=== PATIENT | female | born 1980 | race Hispanic/Latino ===

== ENCOUNTER 2017-03-12 17:13 | Emergency (ER) | payer OTHER ==
[2017-03-12 17:20] VITALS: RESP 16; TEMP 98.7
[2017-03-12] MEDS ORDERED: Sodium Chloride 0.9% 1,000 ML IV STA (17:38)
--- NOTE | 2017-03-12 17:39 | ED PDOC ---
"HPI: Abdomen Time Seen by Provider: 03/12/17 17:25 Chief Complaint (Nursing): Abdominal Pain Chief Complaint (Provider): Abdominal Pain History Per: Patient History/Exam Limitations: no limitations Onset/Duration Of Symptoms: Mins (prior to arrival) Current Symptoms Are (Timing): Better Additional Complaint(s): Jesus Barragan is a 37 year old female who presents to the emergency department, accompanied by her , with a complaint of bilateral lower abdominal pain associated with loss of consciousness of 1-2 seconds due to pain prior to arrival. Denied any fever, chills, nausea, vomiting, diarrhea, vaginal bleeding or discharge. Patient stated she has a baseline of low resting heart rate and abdominal pain has subsided since arriving to ED. DISTRICT ASSOCIATE JUDGE: Abigail Beverly MD PCP: [facility] Past Medical History Reviewed: Historical Data, Nursing Documentation, Vital Signs Vital Signs: Last Vital Signs Temp 98.7 F 03/12/17 17:16 Pulse 52 L 03/12/17 17:32 Resp 16 03/12/17 17:32 BP 106/61 03/12/17 17:32 Pulse Ox 97 03/12/17 21:18 - Medical History PMH: No Chronic Diseases - Surgical History Surgical History: No Surg Hx - Family History Family History: States: Unknown Family Hx - Home Medications Home Medications: Ambulatory Orders Medication Instructions Recorded Naproxen [Naprosyn] 500 mg PO BID PRN #15 tablet 03/12/17 - Allergies Allergies/Adverse Reactions: Allergies Allergy/AdvReac Type Severity Reaction Status Date / Time No Known Allergies Allergy Verified 03/12/17 17:19 Review of Systems ROS Statement: Except As Marked, All Systems Reviewed And Found Negative Constitutional: Negative for: Fever, Chills Gastrointestinal: Positive for: Abdominal Pain (bilateral lower abdomen). Negative for: Nausea, Vomiting, Diarrhea Genitourinary Female: Negative for: Vaginal Discharge, Vaginal Bleeding Neurological: Positive for: Other (loss of consciousness ) Physical Exam - Reviewed Nursing Documentation Reviewed: Yes Vital Signs Reviewed: Yes - Physical Exam Appears: Positive for: Well, Non-toxic, No Acute Distress Head Exam: Positive for: ATRAUMATIC, NORMAL INSPECTION, NORMOCEPHALIC Skin: Positive for: Normal Color, Warm, Dry Eye Exam: Positive for: Normal appearance, EOMI, PERRL. Negative for: Nystagmus Cardiovascular/Chest: Positive for: Regular Rate, Rhythm Respiratory: Positive for: CNT, Normal Breath Sounds Gastrointestinal/Abdominal: Positive for: Bowel Sounds, Soft, Tenderness ( bilateral lower quadrants. Right > Left). 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 Negative for : Motor/Sensory Deficits, Facial Droop - Laboratory Results Result Diagrams: 03/12/17 17:58 03/12/17 17:58 - ECG O2 Sat by Pulse Oximetry: 97 (RA) Pulse Ox Interpretation: Normal - Physician Consult Information Physician Contacted: Evelyn Lin Outcome Of Conversation: Evaluated patient in ED, recommends discharge home. Medical Decision Making Medical Decision Making: Initial Impression: Abdominal pain Initial Plan: * CT ABD/Pelvis * EKG * Alcohol serum * Labs * Urine dipstick * Urine * PTT * PT * NS 1,000ml IV per 1,000mls/hr * Glucose, blood, POC * Urinalysis * US Pelvis/transvaginal * Re-evaluation Time: 2005 --CT Head FINDINGS: Brain: Unremarkable. No hemorrhage. No significant white matter disease. No edema. Ventricles: Unremarkable. No ventriculomegaly. Bones/joints: Unremarkable. No acute fracture. Soft tissues: Unremarkable. Sinuses: Unremarkable as visualized. No acute sinusitis. Mastoid air cells: Unremarkable as visualized. No mastoid effusion. IMPRESSION: Normal head/brain CT. Time: 2017 --CT ABD/Pelvis FINDINGS: Lower thorax: No acute findings. ABDOMEN: Liver: There is hepatomegaly and fatty infiltration of the liver. JESUS BARRAGAN | Preliminary Radiology Report SWITCH ADJUSTER (QA) DISCREPANCY? If there is a discrepancy between the preliminary and final interpretation, please notify [facility] via [email or web address]. If you do not have access to our QA portal, call our QA team at [phone] CONFIDENTIALITY STATEMENT This report is intended only for the use of the referring physician, and only in accordance with law, If you received this in error, call [phone] Page 2 of 2 Gallbladder and bile ducts: Nonfasting gallbladder is distended. The significance of this is unclear, as usually postprandial gallbladder is contracted. No calcified stones. No ductal dilation. Pancreas: Unremarkable. No mass. No ductal dilation. Spleen: The spleen is mildly prominent by index Adrenals: Unremarkable. No mass. Kidneys and ureters: No hydronephrosis or differential renal nephrogram. Stomach and bowel: Unremarkable. No obstruction. No mucosal thickening. Appendix: Normal appendix. PELVIS: Bladder: Unremarkable. No mass. Reproductive: Complex heterogeneous cystic and solid right ovary/adnexa measuring on the order of 7.5 x 5 cm. 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 ABDOMEN and PELVIS: Intraperitoneal space: Small amount of free pelvic fluid likely gynecologic. No free air. Bones/joints: No acute fracture. No dislocation. Soft tissues: Unremarkable. Vasculature: Unremarkable. No abdominal aortic aneurysm. Lymph nodes: Unremarkable. No enlarged lymph nodes. IMPRESSION: Probable gynecologic source of the patient's pain Enlarged complex cystic and solid right ovary. Also evaluated with ultrasound. This needs to be correlated with quantitative beta-hCG. Differential includes ectopic , ovarian torsion, tuboovarian abscess. Time: 2049 --US Pelvis/transvaginal FINDINGS: Uterus/cervix: Uterus measures 10.2 x 4 x 5.6 cm Endometrium measures 1.6 cm. No myometrial mass. Right ovary: Right adnexa/ovary is indistinct and enlarged measuring up to 6.7 x 3 x 6.2 cm with complex cystic masses, reticulated masses, possible hematocrit effect with documented flow. Normal blood flow. Left ovary: Left ovary measures 3 point 2 x 2 by 1.7 cm. Follicles and flow. Normal blood flow. Free fluid: Moderate amount of free fluid with low level echoes. Other findings: Despite numerous attempts the ultrasound worksheet was not provided According to conference call at time of CT abdomen and pelvis, negative quantitative beta hCG There is no definitive hydrosalpinx IMPRESSION: Enlarged heterogeneous right ovary/adnexa with complex cysts in documented blood flow. History is of a negative quantitative beta-hCG The sonographic appearance of the enlarged right adnexa is indeterminate but probably benign characteristics. Tubo-ovarian abscess, endometrioma, ovarian torsion, possible. SMOKING PIPE REPAIRER consultation is recommended. If further imaging is required MRI is recommended Small amount of free pelvic fluid with low-level echoes Differential for low level echoes and ultrasound is blood, mucin or purulent material. CT and ultrasound report previously discussed with . Scribe Attestation: Documented by Sarah Gary, acting as a scribe for Edwige Denise MD. Provider Scribe Attestation: All medical record entries made by the Scribe were at my direction and personally dictated by me. I have reviewed the chart and agree that the record accurately reflects my personal performance of the history, physical exam, medical decision making, and the department course for this patient. I have also personally directed, reviewed, and agree with the discharge instructions and disposition. Disposition - Clinical Impression Clinical Impression: Ovarian cyst, Vasovagal syncope - Disposition Disposition: Routine/Home Disposition Time: 21:23 Condition: STABLE Additional Instructions: FOLLOW-UP WITH YOUR OB-SMOKING PIPE REPAIRER WITHIN 2 DAYS FOR REEVALUATION. Prescriptions: Naproxen [Naprosyn] 500 mg PO BID PRN #15 tablet PRN Reason: Pain, Moderate (4-7) Instructions: Ovarian Cyst (ED), Syncope (ED) Forms: [employer] (Latvian)"
[2017-03-12 17:42] VITALS: BP 106/61; PULSE 52; O2SAT 97
[2017-03-12 18:09] LABS: BASO # 0.1 K/uL (0.0-0.2); BASO % 0.8 % (0.0-2.0); EOS # 0.2 K/uL (0.0-0.7); EOS % 2.8 % (0.0-4.0); HEMATOCRIT 39.5 % (34.0-47.0); LYMPH # 2.2 K/uL (1.0-4.3); LYMPH % 26.2 % (20.0-40.0); MEAN CELL VOLUME 86.7 fl (81.0-99.0); MEAN CORPUSCULAR HEMOGLOBIN 28.8 pg (27.0-31.0); MEAN CORPUSCULAR HGB CONC 33.2 g/dL (33.0-37.0); MEAN PLATELET VOLUME 7.8 fl (7.2-11.7); MONO # 0.4 K/uL (0.0-0.8); MONO % 4.9 % (0.0-10.0); NEUT # 5.4 K/uL (1.8-7.0); NEUT % 65.3 % (50.0-75.0); RED CELL DISTRIBUTION WIDTH 13.4 % (11.5-14.5); WHITE BLOOD COUNT 8.4 K/uL (4.8-10.8)
[2017-03-12 18:13] LABS: ALB/GLOB RATIO 1.8 (1.0-2.1); ALCOHOL SERUM 166 mg/dl (0-10); ALKALINE PHOSPHATASE 52 U/L (38-126); ALT/SGPT 36 U/L (9-52); AST/SGOT 23 U/L (14-36); BILIRUBIN,TOTAL 0.4 mg/dl (0.2-1.3); BLOOD UREA NITROGEN 11 mg/dl (7-17); CALCIUM 9.2 mg/dL (8.4-10.2); CARBON DIOXIDE 20 mmol/L (22-30); CHLORIDE 109 mmol/L (98-107); GFR AFRICAN-AMERICAN > 60; GLUCOSE,RANDOM 78 mg/dL (65-105); SODIUM 143 mmol/l (132-148)
[2017-03-12 18:41] LABS: RBC URINE 1 /hpf (0-3); URINE BACTERIA RARE (<OCC); URINE BILIRUBIN NEGATIVE (NEGATIVE); URINE BLOOD NEGATIVE (NEGATIVE); URINE COLOR YELLOW (YELLOW); URINE GLUCOSE (UA) NEG (Normal); URINE KETONE NEGATIVE (NEGATIVE); URINE LEUKOCYTE ESTERASE NEG Leu/uL (Negative); URINE PROTEIN NEGATIVE (NEGATIVE); URINE UROBILINOGEN 0.2-1.0 mg/dL (0.2-1.0); WBC URINE 1 /hpf (0-5)
[2017-03-12 19:03] LABS: PARTIAL THROMBOPLASTIN TIME 25.8 Seconds (25.6-37.1)
[2017-03-12] MEDS ORDERED: Iohexol 300 100 ML IJ ONE (19:35)
[2017-03-12] MEDS ORDERED: Sodium Chloride 0.9% 50 ML IV ONE (19:35)
--- NOTE | 2017-03-13 07:58 | CT ---
PROCEDURE: CT HEAD WITHOUT CONTRAST. HISTORY: Syncope COMPARISON: None available. TECHNIQUE: Axial computed tomography images were obtained through the head/brain without intravenous contrast. Radiation dose: Total exam DLP = 890 mGy-cm. This CT exam was performed using one or more of the following dose reduction techniques: Automated exposure control, adjustment of the mA and/or kV according to patient size, and/or use of iterative reconstruction technique. FINDINGS: HEMORRHAGE: No intracranial hemorrhage. BRAIN: Intrinsic density of the cheema and white matter structures above below the tentorium appears unremarkable diffusely, including the brainstem. There is no mass effect or suspicious extra-axial fluid collection identified. Midline anatomy appears diffusely unremarkable. VENTRICLES: Unremarkable. No hydrocephalus. CALVARIUM: Unremarkable. PARANASAL SINUSES: Unremarkable as visualized. No significant inflammatory changes. MASTOID AIR CELLS: Unremarkable as visualized. No inflammatory changes. OTHER FINDINGS: None. IMPRESSION: Unremarkable unenhanced head CT. If symptoms persist or worsen follow-up MRI or CT is advised.
--- NOTE | 2017-03-13 10:06 | CT ---
PROCEDURE: CT Abdomen and Pelvis with contrast HISTORY: RLQ pain COMPARISON: None. TECHNIQUE: Helical CT of the abdomen pelvis was performed following intravenous contrast only per oral contrast was not administered as per referring physician request. Contrast dose: Omnipaque 300, 90 cc. Radiation dose: Total exam DLP = 255 mGy-cm. This CT exam was performed using one or more of the following dose reduction techniques: Automated exposure control, adjustment of the mA and/or kV according to patient size, and/or use of iterative reconstruction technique. FINDINGS: LOWER THORAX: Unremarkable. LIVER: There is borderline diffuse fatty infiltration liver with liver otherwise unremarkable. GALLBLADDER AND BILE DUCTS: Unremarkable. PANCREAS: Unremarkable. No gross lesion or ductal dilatation. SPLEEN: Unremarkable. ADRENALS: Unremarkable. No mass. KIDNEYS AND URETERS: Unremarkable. No hydronephrosis. No solid mass. VASCULATURE: Unremarkable. No aortic aneurysm. BOWEL: Unremarkable. No obstruction. No gross mural thickening. APPENDIX: The appendix is questionably identified anterior and inferior to the cecum. PERITONEUM: Unremarkable. No free fluid. No free air. LYMPH NODES: Unremarkable. No enlarged lymph nodes. BLADDER: Unremarkable. REPRODUCTIVE: At the upper right adnexal compartment, there is a poorly enhancing lesion which appears to correspond to a transvaginal pelvic ultrasound finding performed 03/12/2017 as well and felt to represent a hemorrhagic cyst or an endometrioma or even potentially right ovarian torsion. The finding measures 5.7 x 4.[address] appearance agrees with that differential diagnosis particularly given likely identification of the appendix anterior to this structure extending from the anterior cecum. Further clinical correlation is nevertheless advised. There is a negative beta HCG in the clinical chart and an ectopic gestation is unlikely. BONES: No acute fracture. OTHER FINDINGS: None. IMPRESSION: 1. 5.7 cm complex right adnexal lesion suspicious for endometrioma, hemorrhagic cyst at the right ovary and others as discussed above. Overall pattern is of the same right adnexal lesion identified on transvaginal ultrasound exam 03/12/2017. Please add report. Further and gynecological correlation is advised. 2. No acute abdominal findings. Concur with [facility] preliminary report from Dr. Theresa Alvarado.
--- NOTE | 2017-03-13 12:55 | US ---
HISTORY: RLQ pain. Menstrual status: LMP approximately 3 weeks ago. By history, negative test (concurrent with this examination). COMPARISON: None available. TECHNIQUE: Transabdominal, transvaginal. Real -time technique with 2D, duplex and color Doppler. FINDINGS: UTERUS: Measures 4 x 5.6 x 10.0 cm. Normal in size and appearance. No fibroid or other mass lesion seen. ENDOMETRIUM: Measures 18.4 mm in diameter. Endometrial hypertrophy without focal or diffuse abnormality. CERVIX: No cervical abnormality identified. RIGHT OVARY: Measures 2.8 x 6.2 x 6.7 a cm. Enlarged ovary, a dominant solid complex mass with small cystic areas 2.6 x 3.8 x 3.5 cm. Smaller cystic mass likely debris/ hemorrhagic products. Multiple subcentimeter follicles. Normal flow. LEFT OVARY: Measures 2 x 3.1 x 1.7 cm. No solid mass. Normal flow. Multiple subcentimeter follicles. FREE FLUID: No significant free fluid noted. OTHER FINDINGS: None. IMPRESSION: Endometrial hypertrophy without focal abnormality. Enlarged right adnexa with solid/ complex solid and cystic masses. Arterial blood flow documented to both adnexa. Concordant results (preliminary interpretation) provided by [facility]. Procedure Completed: 18:55. Preliminary ([facility]) Report: Dictated and Authenticated: 20:50. Final Interpretation: 12:54. March 13, 2017.
--- NOTE | 2017-03-15 18:37 | CARD ---
APPROVED REPORT EKG Measurement Heart [id number] <Conclusion> Sinus bradycardia Otherwise normal ECG
== END 2017-03-12 21:40 | disposition home or self-care (01) ==
LOC: H.ER 17:13
DX: R55 Syncope and collapse (principal); N83.201 Unspecified ovarian cyst, right side